=== PATIENT | male | born 1990 | race Caucasian/White ===

== ENCOUNTER 2017-06-08 11:12 | Emergency (ER) | payer OTHER ==
[~2017-06-08] VITALS: Ht 165.1 cm; Wt 70.3 kg
[2017-06-08 11:12] VITALS: BP_SYST 142
[2017-06-08] MEDS ORDERED: BACITRACIN 1 GM OINT TP ONE (12:00)
[2017-06-08] MEDS ORDERED: AMOXICILLIN/CLAVULANATE POTASSIUM 875 MG TABLET PO ONE (12:00)
[2017-06-08] MEDS ORDERED: IBUPROFEN 800 MG TABLET PO ONE (12:00)
[2017-06-08] MEDS ORDERED: DULR10 RC (12:10)
[2017-06-08] MEDS ORDERED: LACT10SO66 PO (12:11)
[2017-06-08] MEDS ORDERED: NA P135E3 RC (12:12)
[2017-06-08] MEDS ORDERED: MAGIC BUTT PASTE TP (12:16)
[2017-06-08] MEDS ORDERED: HYDR-1189 PO (12:17)
[2017-06-08] MEDS ORDERED: NPH,100V11 SUBCUT ×2 (12:18→12:19)
[2017-06-08] MEDS ORDERED: SSREG SUBCUT (12:20)
[2017-06-08] MEDS ORDERED: SENN-153 PO (12:28)
[2017-06-08] MEDS ORDERED: ACET-2165 PO (12:29)
[2017-06-08] MEDS ORDERED: VITD400 PO (12:30)
[2017-06-08] MEDS ORDERED: INUL1.5T3 PO (12:31)
[2017-06-08] MEDS ORDERED: MAGN400O4 PO (12:31)
== END 2017-06-08 12:06 | disposition home or self-care (01) ==
LOC: SED 11:12
DX: L05.91 Pilonidal cyst without abscess (principal)
CPT/HCPCS: 99284

== ENCOUNTER 2019-12-08 11:32 | Emergency (ER) | payer BC, OTHER ==
[~2019-12-08] VITALS: Ht 165.1 cm; Wt 77.1 kg
[2019-12-08 12:57] VITALS: BP_SYST 156
[2019-12-08] MEDS ORDERED: MORPHINE SULFATE 10 MG/ML VIAL IM ONE (14:00)
[2019-12-08] MEDS ORDERED: ONDANSETRON 4 MG ODT TAB PO ONE (14:00)
[2019-12-08] MEDS ORDERED: IBUPROFEN 800 MG TABLET PO ONE (14:00)
[2019-12-08 14:55] LABS: BASOPHILS % (AUTO) 0.6 % (0.0-2.0); EOSINOPHILS % (AUTO) 0.8 % (0.0-4.0); HEMATOCRIT 45.4 % (36-54); HEMOGLOBIN 15.6 g/dL (14.0-18.0); LYMPHOCYTES # (AUTO) 2.1 K/uL (1.0-5.5); LYMPHOCYTES % (AUTO) 33.6 % (20.5-51.5); MEAN CORPUSCULAR HEMOGLOBIN 31 pg (27-31); MEAN CORPUSCULAR HGB CONC 34 % (32-36); MEAN CORPUSCULAR VOLUME 89 fL (79.0-98.0); MONOCYTES # (AUTO) 0.6 K/uL (0.0-1.0); MONOCYTES % (AUTO) 9.3 % (1.7-9.3); NEUTROPHILS # (AUTO) 3.4 K/uL (1.8-7.7); NEUTROPHILS % (AUTO) 55.7 % (40.0-70.0); PLATELET COUNT (AUTO) 294 K/uL (130-430); RED BLOOD CELL COUNT(AUTO) 5.13 MIL/uL (4.2-6.2); WHITE BLOOD COUNT (AUTO) 6.1 K/uL (4.8-10.8)
[2019-12-08 15:07] LABS: CALCIUM 9.4 mg/dL (8.4-11.0); CREATININE 0.75 mg/dL (0.55-1.30); POTASSIUM 3.8 mmol/L (3.5-5.1)
[2019-12-08 15:12] LABS: ALBUMIN 4.3 g/dL (3.4-4.8); TOTAL BILIRUBIN 0.6 mg/dL (0.0-1.0)
[2019-12-08] MEDS ORDERED: cefTRIAXone 1 GM in LIDOCAINE 1%, 20 ML MDV 2.1 ML IM ONE (15:45)
[2019-12-08] MEDS ORDERED: AZITHROMYCIN 250 MG TABLET PO ONE (15:45)
[2019-12-08 15:59] VITALS: BP_SYST 138
[2019-12-08 16:14] LABS: BILIRUBIN,URINE NEGATIVE (NEGATIVE); BLOOD, URINE 3+ (NEGATIVE); CLARITY/URINE CLEAR (CLEAR); COLOR,URINE YELLOW (YELLOW); GLUCOSE,URINE NEGATIVE (NEGATIVE); KETONES,URINE 1+ (NEGATIVE); LEUKOCYTE ESTERASE ,URINE NEGATIVE (NEGATIVE); NITRITE, URINE NEGATIVE (NEGATIVE); PH,URINE 6.5 (5.0-8.0); PROTEIN URINE NEGATIVE (NEGATIVE); UROBILINOGEN,URINE 0.2 (0.2-1.0)
[2019-12-08 17:05] LABS: BACTERIA,URINE FEW /HPF (None Seen); RBC,URINE 20-50 /HPF (0-3); WBC,URINE 0-3 /HPF (0-3)
[2019-12-08 17:06] LABS: MUCUS,URINE 1+ /LPF (None Seen)
== END 2019-12-08 15:59 | disposition home or self-care (01) ==
LOC: SED 11:32
DX: M54.41 Lumbago with sciatica, right side (principal); R31.9 Hematuria, unspecified; R03.0 Elevated blood-pressure reading, without diagnosis of hypertension
CPT/HCPCS: 36415; 74176; 80053; 81000; 85025; 87491; 87591; 96372; 99285; J0696; J2001; J2270; Q0144; Q0162